=== PATIENT | female | born 2000 | race Caucasian/White ===

== ENCOUNTER 2019-02-19 20:09 | Emergency (ER) | payer OTHER ==
[~2019-02-19] VITALS: Ht 162.6 cm; Wt 79.4 kg
[~2019-02-19 20:09] MED LIST: AUGMENTIN 875875 MG PO; BACTRIM DS TAB1 EACH PO; NOHOMEMEDICATIONS; ZOFRAN ODT4 MG PO
[2019-02-19 21:04] LABS: URINE BILIRUBIN NEGATIVE (Negative); URINE BLOOD 1+ (Negative); URINE CLARITY CLEAR; URINE COLOR YELLOW; URINE GLUCOSE-RANDOM NEGATIVE (Negative); URINE KETONES NEGATIVE (Negative); URINE NITRITE-REFLEX NEGATIVE (Negative); URINE PROTEIN NEGATIVE (Negative); URINE UROBILINOGEN 0.2 E.U./dl (0.2-1.0)
[2019-02-19 21:05] LABS: URINE LEUKOCYTES-REFLEX 2+ (Negative)
[2019-02-19 21:12] LABS: URINE RBC 0-2 Rare /HPF (0-2); WBC CLUMPS Few (None Seen)
[2019-02-19 21:13] LABS: MUCUS None Seen strn/LPF (None Seen); SQUAMOUS 0-3 Few /LPF (0-3)
[2019-02-19 21:14] LABS: BACTERIA-REFLEX 1-9 Few /HPF (None Seen); CASTS None Seen /LPF (None Seen); CRYSTALS None Seen /LPF (None Seen); URINE WBC-REFLEX >25 Many /HPF (0-5)
[2019-02-19 22:03] LABS: HEMATOCRIT 44.4 % (37.0-47.0); HEMOGLOBIN 15.5 gm/dL (12.0-15.0); MCH 33.5 pg (26.0-34.0); MCHC 34.9 g/dL (28.0-37.0); MCV 95.8 fL (80.0-100.0); MPV 8.2 fl. (7.2-11.1); NUCLEATED RBCS 0 /100WBC; PLATELET COUNT* 199 thou/uL (150-400); RBC 4.64 mil/uL (4.20-5.00); RDW-CV 13.1 % (10.5-14.5)
[2019-02-19 22:13] LABS: CALCIUM 9.8 mg/dL (8.5-10.1); POTASSIUM 4.7 mmol/L (3.5-5.1)
[2019-02-19 22:17] LABS: ALBUMIN 3.5 g/dL (3.4-5.0); TOTAL BILIRUBIN 1.3 mg/dL (<0.1-1.0); TOTAL PROTEIN 7.6 g/dL (6.4-8.2)
[2019-02-19 22:39] LABS: ABSOLUTE MONOCYTES 0.6 thou/uL (0.0-1.2); ABSOLUTE NEUTROPHILS 8.4 thou/uL (1.6-8.1)
[2019-02-19 22:40] LABS: PLATELET ESTIMATE ADEQUATE
[2019-02-19] MEDS ORDERED: AUGMENTIN 875-1 EACH PO (23:53)
[2019-02-19] MEDS ORDERED: DIFLUCAN150 MG PO (23:55)
[2019-02-20 00:04] VITALS: BP 126/88
== END 2019-02-20 00:05 | disposition home or self-care (01) ==
LOC: M.ERS 20:09
PROVIDERS: Nurse Practitioner Family; Personal Emergency Response Attendant
DX: N12 Tubulo-interstitial nephritis, not specified as acute or chronic (principal); R11.2 Nausea with vomiting, unspecified; G43.909 Migraine, unspecified, not intractable, without status migrainosus

== ENCOUNTER 2020-03-23 19:48 | Emergency (ER) | payer OTHER ==
[~2020-03-23] VITALS: Ht 162.6 cm; Wt 81.7 kg
[~2020-03-23 19:48] MED LIST changes: +AUGMENTIN 875-1 EACH PO; +DIFLUCAN150 MG PO
[2020-03-23 19:56] VITALS: BP 143/85
== END 2020-03-23 20:47 | disposition home or self-care (01) ==
LOC: M.ERS 19:48
DX: Z20.828 Contact with and (suspected) exposure to other viral communicable diseases (principal); G43.909 Migraine, unspecified, not intractable, without status migrainosus

== ENCOUNTER → 2021-01-13 | Outpatient (CLI) | payer OTHER | LOC: M.LAB 16:37 | PROVIDERS: ATTEND Otolaryngology | DX: Z01.812 Encounter for preprocedural laboratory examination (principal); Z20.822 Contact with and (suspected) exposure to COVID-19 ==